=== PATIENT | male | born 1960 | race Caucasian/White ===

== ENCOUNTER → 2017-08-21 | Outpatient (CLI) | payer OTHER ==
[~2017-08-21] VITALS: Ht 188 cm; Wt 89.4 kg
[~2017-08-21] MED LIST: OMEPRAZOLE 20 M20 M1 PO; ZOCOR20 MG PO
--- NOTE | ~2017-08-21 | HPC ---
[facility] [place] [address] PAIN MANAGEMENT CONSULTATION Name: ROSLYN MARROQUIN [facility] #: [id number] Admission: 08/21/17 Attend Phys: Julio Cesar Young DO Discharge: Date of : 64 Report #: [id number] THIS REPORT FOR: //name// CC: Julio Cesar Castillo MD DATE OF SERVICE: 08/21/2017 REFERRING PHYSICIAN: Colton Castillo MD CHIEF COMPLAINT: Neck pain, right upper extremity pain with paresthesias. HISTORY OF PRESENT ILLNESS: As you know, the patient is a 57-year-old male who has been experiencing ongoing neck pain, right upper extremity pain that presented on 01/16/2017. The patient denies specific injury or trauma that may have led to symptom development. The patient states he has trialed conservative medical therapy utilizing rest, relaxation, stretching exercises, and [id number] medications; despite these treatments, the patient's pain continued. He was seen in his primary care physician's office who indicated that there is a possibility the patient may be suffering from a cervical radiculopathy. He was sent for MRI of the cervical spine on 05/22/2017, findings were such that there was concern he had a foraminal stenosis due to a focal disk protrusion at the C6-C7 level. They continued conservative therapy, but this did not improve the patient's symptoms. After failing all conservative treatment options, the patient was referred to our clinic to discuss cervical epidural injections and other treatment options for cervical radiculopathy. The patient indicates today pain is periodic, describes the pain as throbbing and sharp, places current pain score 5/10, daily average at 5/10, worst pain has been is 5/10. The patient indicates that tilting his head and rotating his head exacerbate symptoms, stretching appears to improve his symptoms slightly. He has been referred to our service to discussed treatment options for cervical radicular symptoms. PAST MEDICAL HISTORY: 1. Gastroesophageal reflux disease. 2. Dyslipidemia. PAST SURGICAL HISTORY: Vasectomy in 1981 and umbilical herniorrhaphy in 2007. SOCIAL HISTORY: The patient denies tobacco, IV or illicit drug use, admits to one alcoholic beverage per day. 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 He is accompanied by his who is present in room today. REVIEW OF SYSTEMS: Positive for wearing corrective eyewear, hearing loss with [facility] [address] [place] [address] PAIN MANAGEMENT CONSULTATION Name: ROSLYN MARROQUIN [facility] #: [facility] [id number] Admission: 08/21/17 Attend Phys: Julio Cesar Young DO Discharge: Date of : 64 Report #: [id number] tinnitus, numbness and tingling sensations, dyslipidemia, gastroesophageal reflux disease, cervical radiculopathy. All other review of systems negative per 12-point review of systems, and those listed in history of present illness. PAIN IMPACT SCORE: 8/70 indicating mild interference of daily activities secondary to pain. ALLERGIES: No known drug allergies. CURRENT MEDICATIONS: Omeprazole 20 mg once a day and simvastatin 20 mg per day. IMAGING: MRI cervical spine shows C1-C2, C2-C3, C3-C4, and C4-C5 unremarkable. C5-C6 has a diffuse disk bulge, mild uncovertebral hypertrophy, mild left neural foraminal narrowing. C6-C7, a central and right paracentral disk protrusion resulting in mild narrowing of the lateral recess on the right. Disk protrusion reduces AP diameter of the canal to 12-mm centrally and 7-mm at the level of the disk. C7-T1, unremarkable. PQRS: The patient has no known osteoarthritis or rheumatoid arthritis. His pain intensity is 5/10. He is not a fall risk, has not had fallen in the last 3 months. He is not on blood thinners. He is not on any hypertensive medications. He is not on opioids. His assessment tool for opioid abuse is low. Functional assessment 8/70, mild interference of daily activities secondary to pain. PHYSICAL EXAMINATION: VITAL SIGNS: Blood pressure 124/85, pulse 60, respiratory rate 14 and unlabored, the patient is 98% on room air, height 6 feet 2 inches tall, weight 197 pounds, and BMI calculated 25.3. GENERAL: Well-developed, well-nourished, well-hydrated 57-year-old male, appearing his stated age, he is placing pain score today 5/10. HEENT: Normocephalic, atraumatic. Pupils are equal, round, and reactive to light. Extraocular muscles are intact. Sclerae are nonicteric without injection. NEUROLOGIC: Cranial nerves 2-12 are grossly intact. Speech is fluent. LUNGS: Clear, no wheeze, rhonchi or rales. CARDIOVASCULAR: Regular. No appreciable gallop, no rub. ABDOMEN: Soft, nontender, nondistended, normoactive bowel sounds. EXTREMITIES: Show no clubbing, no cyanosis, and no edema. MUSCULOSKELETAL: Upper extremity strength appears equal and symmetrical 5/5, muscle bulk and tone equal and symmetrical in comparing the left upper extremity to right upper extremity. Deep tendon reflexes are symmetrical at biceps, brachialis and triceps. Spurling's test positive right, negative left. There is mild restriction of rotation and lateral flexion to the right when compared to left due to increasing pain. [facility] [address] [place] [address] PAIN MANAGEMENT CONSULTATION Name: ROSLYN MARROQUIN Room #: REG [facility]#: [id number] Admission: 08/21/17 Attend Phys: Julio Cesar Young DO Discharge: Date of : 64 Report #: [id number] ASSESSMENT: 1. Cervical radiculopathy. 2. Displacement of cervical intervertebral disk with radiculopathy. 3. Cervical spondylosis with radiculopathy. 4. Chronic intractable pain. PLAN: 1. The patient has been referred to our service by his primary care physician for evaluation for suspected cervical radiculopathy. The findings on physical exam, the history he provides, the distribution of symptoms he is noting and the findings on MRI do correlate with cervical radicular symptomology. The patient and I discussed at length treatment options for cervical radicular symptoms, these would include the following. We discussed physical therapy, stretching exercises, traction techniques. We discussed medication management with neuropathic pain medications and a consistent nonsteroidal anti-inflammatory. We discussed cervical epidural injections for which the patient was referred to our service and surgical options. After reviewing risks and benefits of all proposed treatment options, the patient chose to begin with cervical epidural injection under fluoroscopic guidance. The patient was advised the risks and benefits of a cervical epidural injection. These risks include, but not necessarily limited to bleeding, bruising, infection, worsening of pain, no relief of pain, also risk of temporary or permanent muscle weakness, temporary or permanent nerve damage, possible paralysis and . The patient states understood and wished to proceed. 2. No medication changes were made at today's visit, the patient to continue current medical therapy as previously prescribed. 3. We will see the patient back in followup visit in approximately 3 weeks. At that time, we will review the efficacy of today's cervical epidural injection and determine if next in the series would be necessary. 4. We wish to thank Dr. Castillo for the referral of this patient to our clinic. We will keep you apprised of his response to treatment for cervical radiculopathy. Again, we wish to thank Dr. Castillo for the opportunity to see this patient in consultation. PROCEDURE NOTE DESCRIPTION OF PROCEDURE: C7-T1 cervical epidural steroid injection under fluoroscopic guidance. After obtaining written consent, the patient was taken back to fluoroscopy suite, placed in prone position with separate pillows under chest and forehead to decrease cervical lordosis. Skin overlying cervical area then prepped and draped in aseptic fashion. C7-T1 cervical interspace identified by AP [address] [address] PAIN MANAGEMENT CONSULTATION Name: ROSLYN MARROQUIN Room #: REG [facility]#: [id number] Admission: 08/21/17 Attend Phys: Julio Cesar Young DO Discharge: Date of : 64 Report #: [id number] fluoroscopy. Skin and subcutaneous tissue overlying target site of injection was anesthetized with 3 mL of 1% lidocaine. A 20-gauge 3-1/2-inch Tuohy needle advanced under fluoroscopic guidance towards the epidural space using midline approach. Epidural space identified using loss of resistance to air technique. After negative aspiration for heme or cerebrospinal fluid, 1 mL of Omnipaque was injected. A cervical epidurogram was confirmed using both AP and oblique fluoroscopy. After negative aspiration for heme or cerebrospinal fluid, 5 mL of a solution containing 2 mL 40 mg per mL, 80 mg total triamcinolone, 3 mL lidocaine 1% injected slowly. Needle retracted long-term, flushed with 1 mL of 1% lidocaine and removed. Sterile bandage placed over injection site. No new motor deficits present in the upper extremity following procedure. The patient tolerated the procedure well, carefully escorted to recovery room in stable condition. No apparent complication. After meeting discharge criteria, the patient discharged home. <ELECTRONICALLY SIGNED> By: Julio Cesar Young DO 09/04/17 0858 [id number] Julio Cesar Young DO /nt
[2017-08-21 07:51] VITALS: BP 124/85
== END | disposition home or self-care (01) ==
LOC: PAIN 06:48
DX: M50.30 Other cervical disc degeneration, unspecified cervical region (principal); M47.22 Other spondylosis with radiculopathy, cervical region; G89.29 Other chronic pain; E78.5 Hyperlipidemia, unspecified; K21.9 Gastro-esophageal reflux disease without esophagitis; Z79.899 Other long term (current) drug therapy; Z98.890 Other specified postprocedural states

== ENCOUNTER → 2017-10-09 | Outpatient (CLI) | payer OTHER ==
[~2017-10-09] VITALS: Ht 188 cm; Wt 89.2 kg
--- NOTE | ~2017-10-09 | HPC ---
[facility] [place] [address] PAIN MANAGEMENT CONSULTATION Name: ROSLYN MARROQUIN Room #: REG [facility]#: [id number] Admission: 10/09/17 Attend Phys: Julio Cesar Young DO Discharge: Date of : 64 Report #: [id number] THIS REPORT FOR: //name// CC: Julio Cesar Castillo MD DATE OF SERVICE: 10/09/2017 REFERRING PHYSICIAN: Colton Castillo MD CHIEF COMPLAINT: Neck pain, right upper extremity pain with paresthesias. HISTORY OF PRESENT ILLNESS: As you know, the patient is a very pleasant 57-year-old male seen in consultation per the request of Dr. Colton Castillo for evaluation of cervical radiculopathy. Our first visit was on 08/21/2017, the patient was diagnosed with cervical radiculopathy. He underwent a cervical epidural injection on 08/21 and again on 09/11/2017, both of which provided good and prolonged benefit. He now reports pain today at a level of no greater than 4/10, he reports 80% improvement in overall pain with previous epidural injection with a slow and progressive return of symptoms, now reporting generally 60% improvement overall. He returns today requesting the third in the series of epidural injections under fluoroscopic guidance to address cervical radicular symptoms. He denies injury or trauma that may have led to recurrence of symptoms. ALLERGIES: No known drug allergies. CURRENT MEDICATIONS: Simvastatin 20 mg once a day and omeprazole 20 mg once a day. SOCIAL HISTORY: The patient denies tobacco, alcohol, IV or illicit drug use. 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 IMAGING: No new imaging available. PQRS: The patient has mild osteoarthritis. No rheumatoid arthritis. Pain intensity 4/10. He is not a fall risk, has not had a fall in the last 3 months. He is not on blood thinners, not treated for hypertension. He is not on chronic opioids. He has a low opioid risk assessment. Pain impact score 21/70 indicating [id number] interference. PHYSICAL EXAMINATION: VITAL SIGNS: Blood pressure 123/78, pulse 62, respiratory rate 14 and unlabored, the patient is 100% on room air, height 6 feet 2 inches tall, weight [facility] [address] [place] [address] PAIN MANAGEMENT CONSULTATION Name: ROSLYN MARROQUIN Room #: REG [facility]#: [id number] Admission: 10/09/17 Attend Phys: Julio Cesra Young DO Discharge: Date of : 64 Report #: [id number] 196.6 pounds, and BMI calculated 25.2. GENERAL: Well-developed, well-nourished, well-hydrated 57-year-old male, appearing his stated age, he is placing pain score around 4/10. HEENT: Normocephalic, atraumatic. Pupils are equal, round, and reactive to light. Extraocular muscles are intact. EXTREMITIES: Show no clubbing, no cyanosis, and no edema. MUSCULOSKELETAL: Upper extremity strength symmetrical 5/5, muscle bulk and tone equal and symmetrical. Spurlings test positive right, negative left. ASSESSMENT: 1. Cervical radiculopathy. 2. Displacement of a cervical intervertebral disk with radiculopathy. 3. Cervical spondylosis with radiculopathy. 4. Chronic intractable pain. PLAN: 1. The patient returns today in followup visit with recurrent cervical radicular symptoms involving neck and right upper extremity. He returns with a pain score of 4/10. He reports a generalized pain improvement of 60% with 2 epidural injections. He returns today requesting the next in a series of epidural injections. The patient was advised the risks and benefits of the procedure, states understood and wished to proceed. 2. No medication changes were made at today's visit. The patient to continue current medical therapy as previously prescribed. 3. We will see the patient back in followup visit for the next in the series of cervical epidural injection 6 months from the initial injection of 08/21/2017. The patient may return earlier if he wishes to discuss medication management options such as initiation of neuropathic pain medications. PROCEDURE NOTE DESCRIPTION OF PROCEDURE: C7-T1 cervical epidural steroid injection under fluoroscopic guidance. This is the third procedure of the first series that the patient is undergoing. After obtaining written consent, the patient was taken back to the fluoroscopy suite and placed in a prone position with separate pillows under chest and forehead to decrease cervical lordosis. The skin overlying the cervical area was prepped and draped in an aseptic fashion. The C7-T1 vertebral interspace was identified by AP fluoroscopy. The skin and subcutaneous tissue overlying the target site of injection was anesthetized using 3 mL of 1% lidocaine. A 20-gauge 3-1/2-inch Tuohy needle was advanced under fluoroscopic guidance toward the epidural space using a midline approach. The epidural space was identified using a loss of resistance to air technique. After negative [facility] [address] [place] [address] PAIN MANAGEMENT CONSULTATION Name: ROSLYN MARROQUIN Room #: REG [facility]#: [id number] Admission: 10/09/17 Attend Phys: Julio Cesar Young DO Discharge: Date of : 64 Report #: [id number] aspiration for heme or cerebrospinal fluid, a total of 1 mL of Omnipaque was injected. A cervical epidurogram was confirmed using AP and oblique fluoroscopy. After negative aspiration for heme or cerebrospinal fluid, 5 mL of a solution containing 2 mL 40 mg per mL, 80 mg total triamcinolone, 3 mL lidocaine 1% was injected in increments. Contrast spread was noted from posterior epidural space. The needle was then retracted approximately chcf and the needle track was flushed with 1 mL of 1% lidocaine. There were no apparent new sensory deficits in the upper extremities present following the procedure. A sterile bandage was placed over the injection site. The heart rate, pulse oximetry and blood pressure were continuously monitored after the procedure. There were no apparent complications. The patient tolerated the procedure well and was carefully escorted in the recovery room in stable condition. After meeting discharge criteria, the patient was discharged home. <ELECTRONICALLY SIGNED> By: Julio Cesar Young DO 10/09/17 1403 [id number] Julio Cesar Young DO /nt
[2017-10-09 08:17] VITALS: BP 123/78
== END | disposition home or self-care (01) ==
LOC: PAIN 06:59
DX: M50.10 Cervical disc disorder with radiculopathy, unspecified cervical region (principal); G89.29 Other chronic pain; M47.22 Other spondylosis with radiculopathy, cervical region; M19.90 Unspecified osteoarthritis, unspecified site; Z79.899 Other long term (current) drug therapy; Z98.890 Other specified postprocedural states